=== PATIENT | female | born 1995 | race Caucasian/White ===

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

== ENCOUNTER → 2017-04-15 | Outpatient (CLI) | payer BC ==
[~2017-04-15] MED LIST changes: -EPIN0.3I14 IM; +EPIN1INJ37 IM
--- NOTE | 2017-04-15 10:03 | DIAGNOSTIC IMAGING REPORT ---
ULTRASOUND OF THE PELVIS CLINICAL HISTORY: Perineal pain. Fatigue and hair loss. COMPARISON STUDY: Pelvic CT dated 05/14/2016. TECHNIQUE: Real-time, grayscale, and color flow sonography of the pelvis is performed both transabdominally and endovaginally. Images are reviewed in the transverse and longitudinal planes. FINDINGS: Uterus: The retroverted uterus is normal in size and echotexture, measuring 7.1 x 4.1 x 4.8 cm. Endometrium: The endometrium is normal in appearance, and the endometrial stripe is normal in thickness measuring up to 0.6 cm. Ovaries: The ovaries are normal in size and morphology. The right ovary measures 4.2 x 2.3 x 2.3 cm and the left ovary measures 3.1 x 1.6 x 3.7 cm. There is a 4.6 cm cyst noted in the right ovary. Additional follicles are seen bilaterally. Normal Doppler waveforms are shown within both ovaries. Pelvis: There is trace free fluid in the cul-de-sac. No concerning adnexal lesion is seen. IMPRESSION: 1. No acute sonographic abnormality is identified in the pelvis noting a retroverted uterus. 2. There is a 4.6 cm simple right ovarian cyst. This does not meet follow-up criteria in this age group. 3. There is trace and likely physiologic free fluid in the cul-de-sac. Electronically signed by: Fadi Lagos M.D. 04/15/2017 10:01 AM Dictated Date/Time: 04/15/2017 9:50 AM
== END | disposition home or self-care (01) ==
LOC: C.ULTR 08:55
PROVIDERS: ATTEND Nurse Practitioner Family
DX: Z87.42 Personal history of other diseases of the female genital tract (principal); L65.9 Nonscarring hair loss, unspecified; R53.83 Other fatigue; R10.2 Pelvic and perineal pain

== ENCOUNTER 2017-09-12 14:51 | Emergency (ER) | payer BC ==
[~2017-09-12] VITALS: Ht 162.6 cm; Wt 54.0 kg
[~2017-09-12 14:51] MED LIST changes: -DIPH1TAB87 PO; -MTR/600 PO; -VNTHFA/IN INH
[2017-09-12 14:54] VITALS: TEMP 36.4; Ht 162.6 cm; Wt 54.0 kg
[2017-09-12] MEDS ORDERED: DIPH1TAB87 PO (15:05)
[2017-09-12] MEDS ORDERED: VNTHFA/IN INH (15:05)
--- NOTE | 2017-09-12 15:05 | EMERGENCY ROOM VISIT NOTE ---
History Report prepared by Denniseibrichardson: Omar Esteban Under the Supervision of: Dr. Blaze Berry M.D. First contact with patient: 15:12 Chief Complaint: FOOT PAIN Stated Complaint: SHARP PAINST IN L FOOT RADIATING UP TO KNEE History of Present Illness The patient is a 21 year old female who presents to the Emergency Room with complaints of left foot pain that began prior to arrival. The patient reports that the tempered glass of an oven door fell out and landed on her left foot. The glass did not shatter and she reports that the pain shoots into her knee. The patient has been icing her foot every 20 minutes but has not taken any pain medication. Source of History: patient, parent Onset: prior to arrival Position: leg (left), ankle (left) Quality: sharp (sharp shooting pain) Timing: constant Review of Systems See HPI for pertinent positives and negatives. A total of ten systems were reviewed and were otherwise negative. Past Medical & Surgical Medical Problems: (1) Asthma (2) Ovarian cyst (3) Pneumonia Family History Cancer Diabetes mellitus Gallbladder disease Heart disease Kidney disease Kidney stones Seizures Social History Smoking Status: Never Smoker Alcohol Use: none Drug Use: none Marital Status: single Housing Status: lives with family Occupation Status: student Current/Historical Medications Scheduled Ibuprofen (Ibuprofen), 1 TAB PO QID Scheduled PRN Albuterol Hfa (Ventolin Hfa), 2 PUFFS INH Q4 PRN for Shortness of Breath Diphenhydramine Hcl (Benadryl Allergy), 25 MG PO UD PRN for ALLERGIC REACTION Epinephrine (Epinephrine), 0.3 MG IM UD PRN for ALLERGIC REACTION Allergies Coded Allergies: Peanut (Verified Allergy, Severe, `, 09/12/17) Pecan (Verified Allergy, Severe, HIVES/ORAL SWELLING, 09/12/17) [place] (Verified Allergy, Severe, HIVES LIPS SWELLING, 02/26/16) Sulfa Drugs (Verified Allergy, Mild, `, 09/12/17) Nut Tree (Verified Allergy, Unknown, HIVES< SWELLING OF LIPS, 09/12/17) Physical Exam Vital Signs Date Time Temp Pulse Resp B/P (MAP) Pulse Ox O2 Delivery O2 Flow Rate FiO2 09/12/17 17:08 75 18 110/67 98 09/12/17 14:54 36.4 72 16 97/64 96 Room Air Physical Exam GENERAL: Awake, alert, well-appearing, in no distress HENT: Normocephalic, atraumatic. Oropharynx unremarkable. EYES: Normal conjunctiva. Sclera non-icteric. NECK: Supple. No nuchal rigidity. FROM. No JVD. RESPIRATORY: Clear to auscultation. CARDIAC: Regular rate, normal rhythm. Extremities warm and well perfused. Pulses equal. ABDOMEN: Soft, non-distended. No tenderness to palpation. No rebound or guarding. No masses. RECTAL: Deferred. MUSCULOSKELETAL: Chest examination reveals no tenderness. The back is symmetrical on inspection without obvious abnormality. There is no CVA tenderness to palpation. No joint edema. LOWER EXTREMITIES: Calves are equal size bilaterally and non-tender. No edema. No discoloration. Mild tenderness of dorsal aspect of left foot. Small contusion , mild medial malleolus tenderness with no edema. ROM intact but causes pain. Distal PMS in tact. NEURO: Normal sensorium. No sensory or motor deficits noted. SKIN: No rash or jaundice noted. Medical Decision & Procedures ER Provider Diagnostic Interpretation: X-ray: Per my interpretation, radiologist review. L ANKLE MIN 3 VIEWS ROUTINE CLINICAL HISTORY: Left ankle pain COMPARISON: None. DISCUSSION: No fractures or dislocations are visualized. There are no erosive or destructive changes. IMPRESSION: No bony abnormalities identified. Electronically signed by: Johnny Hernandez M.D. 09/12/2017 3:48 PM L FOOT MIN 3 VIEWS ROUTINE CLINICAL HISTORY: Left foot pain COMPARISON: None. DISCUSSION: No fractures or dislocations are visualized. There are no erosive or destructive changes. IMPRESSION: No bony abnormalities identified. Electronically signed by: Johnny Hernandez M.D. 09/12/2017 3:48 PM Medications Administered Medications (Trade) Dose Ordered Sig/Vanessa Route Start Time Stop Time Status Last Admin Dose Admin Ibuprofen (Motrin Tab) 600 mg NOW STAT PO 09/12/17 15:15 09/12/17 15:17 DC 09/12/17 15:20 600 MG ED Course 1512:: The patient was evaluated in room A11. A complete history and physical exam was performed. 1515: Motrin Tab, 600 mg, PO. 1734: I reevaluated the patient. Discussed results and discharge instructions: The patient verbalized understanding and agreement. The patient is ready for discharge. Medical Decision I reviewed the patient's past medical history, medications, and the nursing notes as described above. The patient's presentation and history were concerning for fracture, soft tissue injury, and sprain. Patient is a 21-year-old woman who presents [facility] with left foot pain after he tempered glass from her oven door fell on it and reports unable to bear weight. She presents to emergency department well-appearing, in no acute distress, afebrile stable vital signs. Tenderness to the dorsal aspect of the left foot with range of motion intact but causing pain. xXay negative for fx. Likely contusion. Plan for ade bandage/RICE therapy. Patient has crutches at home for WBAT. Findings and plan for follow-up reviewed with patient. Patient agreeable and d/c'd per discharge instructions. Impression Primary Impression: Contusion of foot Scribe Attestation The scribe's documentation has been prepared under my direction and personally reviewed by me in its entirety. I confirm that the note above accurately reflects all work, treatment, procedures, and medical decision making performed by me. Departure Information Dispostion Home / Self-Care Prescriptions Ibuprofen (Ibuprofen) 600 Mg Tab 1 TAB PO QID for Pain for 7 Days, #30 TABS Prov: Blaze Berry M.D. 09/12/17 Referrals Valorie Argueta (PCP) Patient Instructions ED Contusion Foot, ED [facility], My [facility] Additional Instructions Please follow up with your primary care physician in the next 1-3 days for re- evaluation. You likely have a contusion (bruise) to your foot. Otherwise, your exam and xray did not show signs of an emergent condition at this time. Ibuprofen for pain as needed. RICE therapy. Return to the emergency department for worsening symptoms as described in the accompanying instructions.
[2017-09-12] MEDS ORDERED: IBUPROFEN 600 MG TAB PO STA (15:15)
--- NOTE | 2017-09-12 15:49 | DIAGNOSTIC IMAGING REPORT ---
L ANKLE MIN 3 VIEWS ROUTINE CLINICAL HISTORY: Left ankle pain COMPARISON: None. DISCUSSION: No fractures or dislocations are visualized. There are no erosive or destructive changes. IMPRESSION: No bony abnormalities identified. Electronically signed by: Johnny Hernandez M.D. 09/12/2017 3:48 PM Dictated Date/Time: 09/12/2017 3:47 PM
--- NOTE | 2017-09-12 15:50 | DIAGNOSTIC IMAGING REPORT ---
L FOOT MIN 3 VIEWS ROUTINE CLINICAL HISTORY: Left foot pain COMPARISON: None. DISCUSSION: No fractures or dislocations are visualized. There are no erosive or destructive changes. IMPRESSION: No bony abnormalities identified. Electronically signed by: Johnny Hernandez M.D. 09/12/2017 3:48 PM Dictated Date/Time: 09/12/2017 3:48 PM
[2017-09-12] MEDS ORDERED: MTR/600 PO (16:55)
[2017-09-12 17:08] VITALS: BP 110/67; PULSE 75; O2SAT 98
== END 2017-09-12 17:09 | disposition home or self-care (01) ==
LOC: C.EDB 14:52 → C.EDA 17:09
DX: S90.32XA Contusion of left foot, initial encounter (principal); W20.8XXA Other cause of strike by thrown, projected or falling object, initial encounter; J45.909 Unspecified asthma, uncomplicated; Z83.3 Family history of diabetes mellitus; Z82.49 Family history of ischemic heart disease and other diseases of the circulatory system; Z82.0 Family history of epilepsy and other diseases of the nervous system

== ENCOUNTER 2017-11-04 08:47 | Emergency (ER) | payer BC ==
[~2017-11-04] VITALS: Ht 162.6 cm; Wt 54.0 kg
[~2017-11-04 08:47] MED LIST changes: -ALBUAER2 INH; +DIPH1TAB87 PO; -DIPH25TA24 PO; +EPIN0.3I14 IM; -EPIN1INJ37 IM; +MTR/600 PO; +VNTHFA/IN INH
[2017-11-04 08:51] VITALS: TEMP 36.4; Ht 162.6 cm; Wt 54.0 kg
[2017-11-04] MEDS ORDERED: DiphenhydrAMINE HCL 50 MG/ML VIAL IV STA (09:05)
[2017-11-04] MEDS ORDERED: METHYLPREDNISOLONE 125 MG VIAL IV STA (09:05)
[2017-11-04] MEDS ORDERED: EpINEphrine INJ 1MG/ML AMP 1 MG/ML AMP IM STA (09:05)
[2017-11-04] MEDS ORDERED: FAMOTIDINE IV INJ 20 MG in DEXTROSE 5% 100ML 100 ML IV ONE (09:15)
[2017-11-04] MEDS ORDERED: PRED50TA PO (11:36)
[2017-11-04 12:17] VITALS: BP 98/55; PULSE 83; O2SAT 99
--- NOTE | 2017-11-04 15:09 | EMERGENCY ROOM VISIT NOTE ---
ED Visit Note First contact with patient: 08:58 Chief Complaint: Think I may be having allergic reaction. History of Present Illness: Ms. Donnelly is a 21-year-old white female who ambulates into the ED accompanied by her mother complaining of a possible allergic reaction. Historically patient and mother reports that she has a severe allergic reaction to nuts. Patient reports approximately one hour ago she was eating breakfast and had a piece of sausage. Over the last hour she reports she has been having a scratchy sensation in her throat and she's been feeling mildly short of breath. She felt there may be of nuts in the sausage she ate approximately one hour ago. She reports she took 25 mg of Benadryl and had mild relief of her throat itching sensation but not complete relief. Currently she is complaining of sensations of a scratchy throat and mild shortness of breath. She not identified any aggravating factors related to her symptoms. Her treatment was noted above. She denies any recent upper respiratory tract symptoms, cough, wheezing, abdominal pain, nausea, vomiting, skin eruptions, skin color changes, itchy skin. Review of Systems: As noted above in history of present illness. 8 body systems were reviewed and found to be negative as noted above. Past Medical History: As previously noted Current Medications: Allergies to Medications: Sulfa. Social History: Physical Examination: Vital Signs: Date Time Temp Pulse Resp B/P (MAP) Pulse Ox O2 Delivery O2 Flow Rate FiO2 11/04/17 12:17 83 18 98/55 99 11/04/17 10:31 61 16 101/58 99 Room Air 11/04/17 10:09 68 16 93/61 100 Room Air 11/04/17 09:30 53 16 98/67 100 11/04/17 09:11 62 11/04/17 08:53 100 Room Air 11/04/17 08:51 36.4 67 20 95/63 100 Room Air GENERAL: 21-year-old female in mild distress due to symptoms, nontoxic-appearing , afebrile and hemodynamically stable. NEUROLOGICAL: Awake, alert and oriented to person, place and time. Answering questions appropriately and following commands. Normal gait. Good hand eye coordination. No focal motor sensory deficits. SKIN: Warm, dry and pink. No soft tissue eruptions or trauma noted. Mild positive dermatographia test. HEENT: Atraumatic and normocephalic. Sclera white and conjunctiva pink. No drainage from naris. Oral cavity moist and pink. Weight is patent. Pharynx is nonerythematous or edematous. Speech normal. No lymphadenopathy. Trachea midline. No jugular venous distention. No auditory or auscultatory stridor. THORAX: Lungs sounds are clear to auscultation and equal bilaterally with symmetrical chest wall. No wheezing, rales or rhonchi. No crepitus, tenderness , subcutaneous air or deformities noted. HEART: Regular rate and rhythm. No gallops, rubs or murmurs are appreciated. ABDOMEN: Flat, soft and nontender. Positive bowel sounds in all quadrants. No guarding, rigidity or organomegaly. EXTREMITIES: Moves all extremities well on command and with purpose. All distal neurovascular statuses are intact and equal bilaterally. ED Course: Patient is assessed as noted above. Patient's medication list was reviewed. An IV lock was initiated and patient was hydrated with normal saline and received 0.3 mg of epinephrine IM, 25 mg of Benadryl IV, 20 mg of Pepcid IV and 100 mg of Solu-Medrol IV. Patient was reassessed multiple times during her stay in the emergency department. After her second evaluation approximately an hour into her ED stay she reported she had resolution of all symptoms. On her last ED evaluation she was once again symptom-free approximately 3 hours into her stay in the ED. Patient's case was reviewed with Dr. Soto; we agreed on diagnostic approach, treatment, disposition and plan. Patient and mother were educated about today's findings and instructed on her treatment plan; they verbalized understanding and agreement with this plan. Clinical Impression: Allergic reaction. Disposition: Patient discharged home in stable condition accompanied by her mother; prior to departure she was reassessed and once again reported that she was symptom-free. Plan: Patient was encouraged use 25-50 mg of Benadryl every 6 hours and 125 mg of Zantac every 12 hours until resolution of all symptoms. Patient was prescribed prednisone 50 mg once a day for 5 days. Patient is encouraged to follow-up with primary care provider for recheck in 3- 4 days. Patient was encouraged return ED for return of symptoms or any new/concerning symptoms.
== END 2017-11-04 12:18 | disposition home or self-care (01) ==
LOC: C.EDB 08:49
DX: T78.40XA Allergy, unspecified, initial encounter (principal); X58.XXXA Exposure to other specified factors, initial encounter

== ENCOUNTER 2018-02-01 22:42 | Emergency (ER) | payer BC ==
[~2018-02-01] VITALS: Ht 160 cm; Wt 52.3 kg
[~2018-02-01 22:42] MED LIST changes: -MTR/600 PO
[2018-02-01 22:44] VITALS: TEMP 36.6; Ht 160 cm; Wt 52.3 kg
--- NOTE | 2018-02-01 23:04 | EMERGENCY ROOM VISIT NOTE ---
History Report prepared by Gavi: Leslie Rees Under the Supervision of: Dr. Jacklyn Wright D.O. First contact with patient: 22:47 Chief Complaint: LACERATION/CUT (SUT/DERMABOND) Stated Complaint: LACERATION TO LEFT HAND, 2ND DIGIT Nursing Triage Summary: Pt cut herself with kitchen knife at work 5 hrs ago. Laceration to left pointer finger. Pt states when she took bandaid off it started to bleed uncontrollably. History of Present Illness The patient is a 22 year old female who presents to the Emergency Room with complaints of an episode of laceration to her left pointer finger 5 hours ago. The patient was cutting cooked chicken at work when she accidentally cut her finger. She was using a straight edge knife. She applied an antiseptic to her finger, applied pressure, and put on a band aid. She continued to work. 5 hours later, she removed the band aid and found that her finger was still bleeding and decided to come to the ED. The patient is right handed. Her tetanus is up to date. She denies any other injuries. Source of History: patient Onset: 5 hours ago Position: finger(s) (left pointer) Quality: other (laceration) Timing: other (episodic) Review of Systems See HPI for pertinent positives & negatives. A total of 6 systems reviewed and were otherwise negative. Past Medical & Surgical Medical Problems: (1) Asthma (2) Ovarian cyst (3) Pneumonia Family History Cancer Diabetes mellitus Gallbladder disease Heart disease Kidney disease Kidney stones Seizures Social History Smoking Status: Never Smoker Alcohol Use: none Drug Use: none Marital Status: single Housing Status: lives with family Occupation Status: student Current/Historical Medications Scheduled PRN Albuterol Hfa (Ventolin Hfa), 2 PUFFS INH Q4 PRN for Shortness of Breath Diphenhydramine Hcl (Benadryl Allergy), 25 MG PO UD PRN for ALLERGIC REACTION Epinephrine (Epinephrine), 0.3 MG IM UD PRN for ALLERGIC REACTION Allergies Coded Allergies: Peanut (Verified Allergy, Severe, `, 11/04/17) Pecan (Verified Allergy, Severe, HIVES/ORAL SWELLING, 11/04/17) [place] (Verified Allergy, Severe, HIVES LIPS SWELLING, 11/04/17) Sulfa Drugs (Verified Allergy, Mild, `, 11/04/17) Nut Tree (Verified Allergy, Unknown, HIVES< SWELLING OF LIPS, 11/04/17) Physical Exam Vital Signs Date Time Temp Pulse Resp B/P (MAP) Pulse Ox O2 Delivery O2 Flow Rate FiO2 02/01/18 23:13 69 18 99 02/01/18 22:44 36.6 69 18 99 Room Air Physical Exam GENERAL: alert, well appearing, well nourished, no distress, non-toxic EYE EXAM: normal conjunctiva, PERRL and EOM's grossly intact LUNGS: no increased work of breathing, no obvious distress. Normal chest wall mechanics HEART: normal pulses SKIN: no rashes and no bruising UPPER EXTREMITIES: 1 cm superficial laceration to the left 2nd finger. Normal cap refill, sensory intact, patient with full range of motion and no evidence of tendon disruption. I do not suspect occult digital fracture. No involvement of the nailbed. Patient right-hand dominant. LOWER EXTREMITIES: No pitting edema. NEURO EXAM: Normal sensorium, cranial nerves II-XII grossly intact, normal speech, no gross weakness of arms, no gross weakness of legs. Medical Decision & Procedures ED Course 224: The patient was evaluated in room C3. A complete history and physical exam was performed. Dermabond and steri strips applied. Bleeding controlled. No debris or foreign body. Patient with full range of motion, sensation intact. Normal cap refill. I discussed the findings and the treatment plan with the patient. She verbalizes agreement and understanding. She was discharged home. Medical Decision Patient well-appearing and laceration superficial. Discussed with patient symptoms to watch and return for, she verbalized understanding was agreeable with plan. Medication Reconcilliation Current Medication List: was personally reviewed by me Impression Primary Impression: Laceration Scribe Attestation The scribe's documentation has been prepared under my direction and personally reviewed by me in its entirety. I confirm that the note above accurately reflects all work, treatment, procedures, and medical decision making performed by me. Departure Information Dispostion Home / Self-Care Referrals Valorie Argueta (PCP) Patient Instructions My [facility] Additional Instructions Please keep the area clean and dry and avoiding additional dirt or debris in the area. The Steri-Strips will come off over the next couple of days particularly with frequent handwashing, and the medical glue applied will wear away also. If the area develops increased pain, increased redness or drainage, pink streaks up the finger, he developed fevers, are unable to use your hand, you have any other new concerns, please return the emergency room.
[2018-02-01 23:13] VITALS: PULSE 69; O2SAT 99
== END 2018-02-01 23:14 | disposition home or self-care (01) ==
LOC: C.EDB 22:43 → C.EDC 23:14
DX: S61.211A Laceration without foreign body of left index finger without damage to nail, initial encounter (principal); W26.0XXA Contact with knife, initial encounter; J45.909 Unspecified asthma, uncomplicated; Z91.010 Allergy to peanuts; Z91.018 Allergy to other foods; Z88.2 Allergy status to sulfonamides